=== PATIENT | female | born 1965 | race Caucasian/White ===

== ENCOUNTER 2020-02-29 10:46 | Emergency (ER) | payer OTHER ==
[~2020-02-29] VITALS: Ht 162.6 cm; Wt 56.7 kg
[2020-02-29 11:17] LABS: ABSOLUTE NEUTROPHILS 3.3 thou/uL (1.4-8.2); EOSINOPHILS 0.8 % (0.0-3.0); HEMATOCRIT 50.7 % (37.0-47.0); HEMOGLOBIN 17.2 gm/dL (12.0-15.0); LYMPHOCYTES 36.8 % (24.0-44.0); MCH 34.2 pg (26.0-34.0); MCHC 33.8 g/dL (28.0-37.0); MCV 101.1 fL (80.0-100.0); PLATELET COUNT 218 thou/uL (150-400); POLYS 55.4 % (36.0-66.0); RBC 5.02 mil/uL (4.20-5.00); RDW 12.7 % (10.5-14.5)
[2020-02-29 11:27] LABS: ANION GAP 10 mmol/L (7-16); BUN 11 mg/dL (7-18); CALCIUM 9.5 mg/dL (8.5-10.1); CHLORIDE 98 mmol/L (98-107); CO2 25 mmol/L (21-32); CREATININE 0.8 mg/dL (0.6-1.0); GLUCOSE 142 mg/dL (74-106); POTASSIUM 3.5 mmol/L (3.5-5.1); SODIUM 133 mmol/L (136-145)
[2020-02-29 11:36] LABS: MAGNESIUM 2.1 mg/dL (1.8-2.4); TROPONIN-I <0.06 ng/mL (<0.06)
[2020-02-29 12:12] VITALS: BP 113/73
--- NOTE | 2020-03-01 08:48 | EKG ---
[facility] [place] [address] ELECTROCARDIOGRAM REPORT Name: MAURICE RICH [facility] [id number] Admission: 02/29/20 Attend Phys: Discharge: 02/29/20 Date of : 67 Report #: [id number] THIS REPORT FOR: cc: Shona Sandhu MD, Allison MD Lundgren,Levar Coleman MD [facility] ~ THIS REPORT FOR: //name// [facility] ED Test Date: 2020-02-29 Test Time: 10:48:26 Pat Name: MAURICE RICH Department: Room: Gender: F Squirrel Man: [facility] : 1965 Requested By: Oniel Morataya Order Number: [id number] MD: Levar Cervantes Measurements Intervals [place] Rate: 84 P: 82 CA: 147 QRS: 65 QRSD: 93 T: 17 QT: 389 QTc: 460 Interpretive Statements Sinus rhythm Atrial premature complexes RSR' in V1 or V2, probably normal variant No previous ECG available for comparison Electronically Signed On 03-01-2020 8:47:18 CDT by Levar Cervantes [email or web address] <ELECTRONICALLY SIGNED> By: Levar Cervantes MD, [facility] 03/01/20 0847 [id number] [id number] Levar Cervantes MD, [facility] /EPI
== END 2020-02-29 12:14 | disposition home or self-care (01) ==
LOC: ER 10:46
PROVIDERS: Emergency Medicine
DX: R00.2 Palpitations (principal); F17.210 Nicotine dependence, cigarettes, uncomplicated; Z90.710 Acquired absence of both cervix and uterus; Z88.1 Allergy status to other antibiotic agents; Z88.6 Allergy status to analgesic agent; Z88.8 Allergy status to other drugs, medicaments and biological substances